=== PATIENT | male | born 1960 | race Native Hawaiian/Other Pacific Islander ===

== ENCOUNTER 2017-03-02 12:11 | Outpatient (CLI) | payer BC | END 2017-03-02 18:03 | disposition home or self-care (01) | LOC: LABW 12:11 | DX: R10.13 Epigastric pain (principal) | CPT/HCPCS: 87338 ==

== ENCOUNTER 2017-03-05 13:24 | Outpatient (CLI) | payer BC | END 2017-03-05 19:00 | disposition home or self-care (01) | LOC: CT 13:24 | DX: R93.8 Abnormal findings on diagnostic imaging of other specified body structures (principal) | CPT/HCPCS: 36415; 82565; 84520; Q9963 ==

== ENCOUNTER 2017-04-01 11:42 | Outpatient (CLI) | payer BC | END 2017-04-01 19:21 | disposition home or self-care (01) | LOC: NM 11:42 | DX: R10.13 Epigastric pain (principal) | CPT/HCPCS: A9537 ==

== ENCOUNTER 2017-10-25 09:00 | Outpatient (CLI) | payer BC | END 2017-10-25 21:04 | disposition home or self-care (01) | LOC: CT 09:00 | DX: K75.89 Other specified inflammatory liver diseases (principal) | CPT/HCPCS: 36415; 82565; 84520; Q9963 ==

== ENCOUNTER 2018-12-26 16:13 | Outpatient (CLI) | payer BC | END 2018-12-26 19:16 | disposition home or self-care (01) | LOC: RAD 16:13 | DX: M25.561 Pain in right knee (principal) ==

== ENCOUNTER 2019-02-03 08:16 | Outpatient (CLI) | payer BC ==
[2019-02-03 14:26] LABS: PLATELET COUNT 255 K/uL (142-355)
[2019-02-03 14:45] LABS: POTASSIUM 4.2 mmol/L (3.6-5.2)
== END 2019-02-03 19:22 | disposition home or self-care (01) ==
LOC: LABW 08:16 → US 08:16
PROVIDERS: Registered Nurse
DX: R10.11 Right upper quadrant pain (principal)
CPT/HCPCS: 36415; 80053; 80074; 82150; 82728; 83540; 83690; 85027; 85651; 86140; 86318

== ENCOUNTER 2019-02-21 12:24 | Outpatient (CLI) | payer BC | END 2019-02-21 21:01 | disposition home or self-care (01) | LOC: NM 12:24 | DX: R10.11 Right upper quadrant pain (principal) | CPT/HCPCS: A9537 ==

== ENCOUNTER 2022-12-31 12:16 | Outpatient (CLI) | payer BC | END 2022-12-31 19:04 | disposition home or self-care (01) | LOC: RAD 12:16 | PROVIDERS: ATTEND Physician Assistant | DX: M25.561 Pain in right knee (principal) ==